=== PATIENT | male | born 1935 | race Caucasian/White ===

== ENCOUNTER 2017-04-16 18:52 | Inpatient (IN) | payer OTHER, BC ==
--- NOTE | 2017-04-16 20:12 | PDOC ---
History of Present Illness - General History Source: Patient, Family Exam Limitations: No Limitations - History of Present Illness Initial Comments: 04/16/17 21:15 The patient is an 82 year old male with a significant PMH of AFIB (not on blood thinners) & HTN who presents to the emergency department with dizziness and chest pain beginning at approximately 4PM today. The patient describes the chest pain as a pressure-like sensation localized in the left upper chest with no radiation, 5/10 in severity. He notes associated mild shortness of breath with his chest pain. The patient reports working in his basement and feeling dizzy while reaching into his toolbox. He notes grabbing onto furniture to prevent himself from falling and injuring his head. He reports associated mild nausea with the onset of his dizziness and reports developing his chest pain shortly after. The patient notes taking a regular dose Aspirin to some relief. The patient acknowledges dizziness upon sitting up at the ED. The patient states he only had Jello & soup to eat all day. The patient reports having similar episodes of dizziness in the past. He reports having a stress test conducted in August which was normal. The patient denies headache. Denies fever, chills, nausea, vomit, diarrhea and constipation. Denies dysuria, frequency, urgency and hematuria. Allergies: NKA Past surgical history: Hepaticojejunostomy. Right shoulder surgery. Social history: Occasional alcohol use. Former smoker. No reported drug use. PCP: Dr. Gama <Joe Pace - Last Filed: 04/16/17 22:53> <Noelle Taveras - Last Filed: 04/17/17 04:38> - General Chief Complaint: Chest Pain Stated Complaint: CHEST PAIN Time Seen by Provider: 04/16/17 19:34 NIH Stroke Scale - Last Known Well Date/Time & Onset Date Last Known Well: 04/16/17 Time Last Known Well: 16:00 - Initial Evaluation Level of consciousness: Alert Ask patient the month and their age: Answers both correctly Ask patient to open & close eyes; make fist and let go: Obeys both correctly Best gaze (horizontal eye movement): Normal Visual field testing: No visual field loss Facial paresis (Show teeth/raise eyebrows/close eyes tight): Normal symmetrical movement Motor Function: Left Arm: Normal Motor Function: Right Arm: Normal (extends arm 90 (or 45) degrees for 10 seconds without drift Motor Function: Left Leg: Normal (extends leg 30 degrees for 5 seconds without drift) Motor Function: Right Leg: Normal (extends leg 30 degrees for 5 seconds without drift) Limb Ataxia: No ataxia Sensory(Use pinprick test arms,legs,trunk,face/side to side): Normal Best language (Describe picture, name items, read sentences): No Aphasia Dysarthria (read several words): Normal articulation Extinction and Inattention: No abnormality - Total Score NIH Stroke Scale Score: 0 <Noelle Taveras - Last Filed: 04/17/17 04:38> Past History <Joe Pace - Last Filed: 04/16/17 22:53> - Past Medical History Anemia: No Asthma: No Cancer: No Cardiac Disorders: No CVA: No COPD: No CHF: No Dementia: No Diabetes: No GI Disorders: Yes (DIVERTICULOSIS) Disorders: Yes (BPH) HTN: Yes Hypercholesterolemia: No Liver Disease: Yes (PANCREATIC/HEPATIC CYST) Seizures: No Thyroid Disease: No - Surgical History Abdominal Surgery: No Appendectomy: Yes Cardiac Surgery: No Cholecystectomy: Yes (HEPATOJEJUNOSTOMY BYPASS FOR STONE BILE DUCT) Lung Surgery: No Neurologic Surgery: No Orthopedic Surgery: Yes (RIGHT SHOULDER SURGERY) - Suicide/Smoking/Psychosocial Hx Smoking History: Never smoked Have you smoked in the past 12 months: No If you are a former smoker, when did you quit?: 2007 Hx Alcohol Use: Yes (social) Drug/Substance Use Hx: No Hx Substance Use Treatment: No <Noelle Taveras - Last Filed: 04/17/17 04:38> - Past Medical History Allergies/Adverse Reactions: Allergies Allergy/AdvReac Type Severity Reaction Status Date / Time No Known Allergies Allergy Verified 05/25/14 15:42 Home Medications: Ambulatory Orders Amlodipine Bes/Olmesartan Med [Yariel 5-20 mg Tablet] 1 each PO DAILY 05/25/12 Terazosin HCl [Hytrin -] 2 mg PO DAILY 05/25/12 Review of Systems - Review of Systems Able to Perform ROS?: Yes Comments:: 04/16/17 21:15 GENERAL/CONSTITUTIONAL: No fever or chills. No weakness. HEAD, EYES, EARS, NOSE AND THROAT: No change in vision. No ear pain or discharge. No sore throat. CARDIOVASCULAR: (+) Chest pain. (+) Shortness of breath. RESPIRATORY: No cough, wheezing, or hemoptysis. GASTROINTESTINAL: (+) Nausea. No vomiting, diarrhea or constipation. GENITOURINARY: No dysuria, frequency, or change in urination. MUSCULOSKELETAL: No joint or muscle swelling or pain. No neck or back pain. SKIN: No rash NEUROLOGIC: (+) Dizziness. No headache, vertigo, loss of consciousness, or change in strength. ENDOCRINE: No increased thirst. No abnormal weight change. HEMATOLOGIC/LYMPHATIC: No anemia, easy bleeding, or history of blood clots. ALLERGIC/IMMUNOLOGIC: No hives or skin allergy. <Joe Pace - Last Filed: 04/16/17 22:53> *Physical Exam - Vital Signs Last Vital Signs Temp Pulse Resp BP Pulse Ox 98.4 F 65 19 157/89 98 04/16/17 19:00 04/16/17 19:00 04/16/17 19:00 04/16/17 19:00 04/16/17 19:00 - Physical Exam Comments: 04/16/17 21:17 GENERAL: Awake, alert, and fully oriented, in no acute distress HEAD: No signs of trauma EYES: PERRLA, EOMI, sclera anicteric, conjunctiva clear ENT: Auricles normal inspection, hearing grossly normal, nares patent, oropharynx clear without exudates. Moist mucosa NECK: Normal ROM, supple, no lymphadenopathy, JVD, or masses LUNGS: Breath sounds equal, clear to auscultation bilaterally. No wheezes, and no crackles HEART: Regular rate and rhythm, normal S1 and S2, no murmurs, rubs or gallops ABDOMEN: Soft, nontender, normoactive bowel sounds. No guarding, no rebound. No masses EXTREMITIES: Normal range of motion, no edema. No clubbing or cyanosis. No cords, erythema, or tenderness NEUROLOGICAL: Cranial nerves II through XII intact. 5/5 motor strength in all extremities. Normal speech. SKIN: Warm, Dry, normal turgor, no rashes or lesions noted. <Joe Pace - Last Filed: 04/16/17 22:53> - Vital Signs Last Vital Signs Temp Pulse Resp BP Pulse Ox 98.4 F 65 19 157/89 98 04/16/17 19:00 04/16/17 19:00 04/16/17 19:00 04/16/17 19:00 04/16/17 19:00 <Noelle Taveras - Last Filed: 04/17/17 04:38> ED Treatment Course - LABORATORY CBC & Chemistry Diagram: 04/16/17 20:21 04/16/17 20:21 - ADDITIONAL ORDERS Additional order review: Laboratory Results 04/16/17 20:21 Sodium 139 Potassium 3.8 Chloride 107 Carbon Dioxide 23 Anion Gap 9 BUN 14 D Creatinine 1.1 Creat Clearance w eGFR > 60 Random Glucose 153 H D Calcium 8.1 L Total Bilirubin 1.1 H D AST 35 D ALT 36 Alkaline Phosphatase 438 H D Creatine Kinase 38 L Troponin I 0.06 H Total Protein 6.3 L Albumin 2.8 L D 04/16/17 20:21 RBC 3.97 L MCV 97.0 H MCHC 33.6 RDW 12.8 MPV 9.0 Neutrophils % 88.0 H D Lymphocytes % 7.4 L D Monocytes % 4.3 Eosinophils % 0.1 D Basophils % 0.2 - Medications Given in the ED: ED Medications Discontinued Medications Generic Name Dose Route Start Last Admin Trade Name Freq PRN Reason Stop Dose Admin Meclizine HCl 50 mg 04/16/17 20:14 04/16/17 20:30 Antivert - PO 04/16/17 20:15 50 mg ONCE ONE Administration - Consult/PCP Case discussed with personal care physician: Munira Gama - Additional Consults Consult/PCP: Mitchell Sanders MD (Neurology) <Joe Pace - Last Filed: 04/16/17 22:53> - LABORATORY CBC & Chemistry Diagram: 04/16/17 20:21 04/16/17 20:21 <Noelle Taveras - Last Filed: 04/17/17 04:38> Medical Decision Making - Medical Decision Making 04/17/17 04:11 Pt comes with dizziness that began at 4PM. He was in his basement and felt like he was going to fall to the side. Pt had to hold on to the rhodes to stay up. He has no other complaints. He is nauseous. Pt has no Weakness and he has no altered MS. He has no fever or chills, no cough. Pt sees Dr. Gama. He has Afib x 2 years and refuses to take aniticoagulants, as he knows a few people who have had bad outcomes with blood thinners. 04/17/17 04:13 Pt's neuro exam is positive only for dizziness. No nystagmus. Off balance when walking. Pt's CT scan shows a cerebellar infarct on the left side. I discussed the case with neurology manager personal Dr. Sanders, who thinks pt should go to [facility] for interventional endovascular treatment. I got the okay from PMD Natan. I spoke to the stroke team at [facility], and they think that if PICA is involves/ vertebral arteries, there is no intervention; however if basilar system is involved then endovascular treatment is likely. We discussed the need for CTA brain. CTA brain reveals that pt has normal basilar arteries. Pt will stay in our hospital, as [facility] has no ICU beds for the patient. Pt will remain here; Dr. Sanders is aware and Dr. Gama is aware. 04/17/17 04:20 THIS IS A PRELIMINARY REPORT FROM IMAGING MECHANICAL INSPECTOR DATE OF SERVICE: 2017-04-16 20:38:12 IMAGES: 140 EXAM: CT head without contrast HISTORY: DISI COMPARISON: None. FINDINGS: 1. There is a large area of edema in the left cerebellum most consistent with the appearance of an acute infarct. There is no evidence of intracranial hemorrhage or significant mass effect. 2. Ventricular size is concordant with the degree of atrophy. 3. The visualized portions of the orbits, paranasal and mastoid sinuses are unremarkable. 4. No evidence of fracture. THIS DOCUMENT HAS BEEN ELECTRONICALLY SIGNED DATE OF SERVICE: 2017-04-16 22:30:27 IMAGES: [id number] EXAM: CT CTA HEAD HISTORY: Rule out vertebrobasilar occlusion COMPARISON: None. FINDINGS: There is a subacute left inferior cerebellar infarct. This is in the distribution of the left posterior inferior cerebellar artery. The left posterior inferior cerebellar artery is abruptly cut off after its first centimeter and is likely occluded. This corresponds to the territory of the infarct. The remainder of the anterior and posterior arterial circulations are patent without stenosis occlusion dissection or aneurysm. The basilar artery is patent. THIS DOCUMENT HAS BEEN ELECTRONICALLY SIGNED 04/17/17 04:34 Stroke team at [facility] warns that PICA infarcts can cause substantial swelling. Pt will require frequent neuro checks and may result in decreased mental status. In this event, neurosurgery should be called to see the patient. <Noelle Taveras - Last Filed: 04/17/17 04:38> *DC/Admit/Observation/Transfer - Attestations Scribe Attestion: 04/16/17 21:17 Documentation prepared by Joe Pace, acting as emergency medical technician for Noelle Taveras MD. <Joe Pace - Last Filed: 04/16/17 22:53> - Discharge Dispostion Admit: Yes <Noelle Taveras - Last Filed: 04/17/17 04:38> Diagnosis at time of Disposition: CVA (cerebral vascular accident) - Discharge Dispostion Condition at time of disposition: Guarded
[2017-04-16] MEDS ORDERED: MECLIZINE HCL 25 MG TABLET (FP) PO ONE (20:14)
[2017-04-16] MEDS ORDERED: MECLIZINE HCL 25 MG TABLET (FP) ONE (20:24)
[2017-04-16 20:29] LABS: BASOPHIL 0.2 % (0-2.0); EOSINOPHIL 0.1 % (0-4.5); MCH 32.6 pg (25.7-33.7); MCHC 33.6 g/dl (32.0-35.9); PLATELET COUNT 185 K/MM3 (134-434); RDW 12.8 % (11.9-15.9); WHITE BLOOD COUNT 7.7 K/mm3 (4.0-10.0)
[2017-04-16 21:05] LABS: ALBUMIN 2.8 g/dl (3.4-5.0); ANION GAP 9 (8-16); BILIRUBIN,TOTAL 1.1 mg/dL (0.2-1.0); CALCIUM 8.1 mg/dL (8.5-10.1); CO2 23 mmol/L (21-32); CREATININE 1.1 mg/dL (0.7-1.3); GLUCOSE,RANDOM 153 mg/dL (74-106); SGOT/AST 35 U/L (15-37); SGPT/ALT 36 U/L (12-78); TOT PROT 6.3 g/dl (6.4-8.2)
[2017-04-16 21:07] LABS: ALK PHOS 438 U/L (45-117); CPK 38 IU/L (39-308); TROPONIN I 0.06 ng/ml (0.00-0.05)
[2017-04-16] MEDS ORDERED: ASPIRIN 81 MG CHEWABLE TABLETS PO ONE (21:31)
[2017-04-16] MEDS ORDERED: ASPIRIN 325 MG TABLET ONE (22:52)
[2017-04-17 02:01] VITALS: BMI 25.5
[2017-04-17] MEDS: ACETAMINOPHEN 325 MG TABLET (FP) PO PRN (05:49)
[2017-04-17] MEDS ORDERED: RANITIDINE HCL 150 MG TABLET (FP) PO ONE (06:30)
[2017-04-17 09:21] LABS: CHOLESTEROL 105 mg/dL (50-200)
--- NOTE | 2017-04-17 11:36 | HP ---
Admitting History and Physical - Primary Care Physician PCP: Munira Gama - Admission Chief Complaint: DIZZINESS/WEAKNESS/CHEST PRESSURE/HEADACHE History of Present Illness: 82 Y/O MALE WITH HISTORY HTN, BPH,BILIARY STRICTURE, WITH A RECENT OF HIS IN PAST 1 MONTH. PATIENT WAS IN THE BASEMENT OF HIS HOUSE DEVELOPED HEADACHE WITH DIZZINESS, POSSIBLE ROOM SPINNING WITH IMMEDIATE NAUSEA AND VOMITING. EMS WAS CALLED BY FAMILY AND BROUGHT TO ED FOR WORKUP. SUBACUTE/ACUTE CVA POSSIBLE ON CT HEAD, WITH CAROTID ISCHEMIA ON CTA. MRI BRAIN PENDING, LAST MRI BRAIN IN DEC 2016 SHOWED CHRONIC CHANGES, NO ACUTE CVA. History Source: Patient, Family Member Limitations to Obtaining History: No Limitations - Past Medical History Cardiovascular: Yes: HTN Hepatobiliary: Yes: Other - Smoking History Smoking history: Never smoked Have you smoked in the past 12 months: No If you are a former smoker, when did you quit?: 2007 - Alcohol/Substance Use Hx Alcohol Use: Yes (social) Home Medications - Allergies Allergies/Adverse Reactions: Allergies Allergy/AdvReac Type Severity Reaction Status Date / Time No Known Allergies Allergy Verified 05/25/14 15:42 - Home Medications Home Medications: Ambulatory Orders Amlodipine Bes/Olmesartan Med [Yariel 5-20 mg Tablet] 1 each PO DAILY 05/25/12 Terazosin HCl [Hytrin -] 2 mg PO DAILY 05/25/12 Review of Systems - Review of Systems Constitutional: reports: Weakness Eyes: reports: No Symptoms Neck: reports: No Symptoms Cardiovascular: reports: Chest Pain Respiratory: reports: SOB Gastrointestinal: reports: Nausea, Vomiting Genitourinary: reports: No Symptoms Musculoskeletal: reports: Back Pain Integumentary: reports: No Symptoms Neurological: reports: Dizziness, Unsteady Gait, Weakness Endocrine: reports: No Symptoms Hematology/Lymphatic: reports: No Symptoms Psychiatric: reports: No Symptoms Physical Examination Vital Signs: Vital Signs Temperature 98.2 F 04/17/17 09:00 Pulse Rate 44 L 04/17/17 09:00 Respiratory Rate 18 04/17/17 09:00 Blood Pressure 138/68 04/17/17 09:00 O2 Sat by Pulse Oximetry (%) 97 04/17/17 01:00 Findings/Remarks: [facility]AEK ALERT IN [facility], TRANSFERRING TO MRI BRAIN Constitutional: Yes: Mild Distress HENT: Yes: WNL Neck: Yes: WNL Cardiovascular: Yes: Bradycardia Respiratory: Yes: WNL Gastrointestinal: Yes: WNL Renal/: Yes: WNL Musculoskeletal: Yes: WNL Extremities: Yes: WNL Edema: No Peripheral Pulses WNL: Yes Integumentary: Yes: WNL Wound/Incision: Yes: Clean/Dry Neurological: Yes: Unsteady Gait ...Motor Strength: LLE, RLE Psychiatric: Yes: WNL Labs: CBC, BMP 04/16/17 20:21 04/16/17 20:21 Imaging - Results Cat Scan: Report Reviewed Problem List - Problems (1) Hypertension Code(s): I10 - ESSENTIAL (PRIMARY) HYPERTENSION Qualifiers: Hypertension type: essential hypertension Qualified Code(s): I10 - Essential (primary) hypertension (2) Vertigo Code(s): R42 - DIZZINESS AND GIDDINESS (3) Bradycardia Code(s): R00.1 - BRADYCARDIA, UNSPECIFIED (4) Nausea & vomiting Code(s): R11.2 - NAUSEA WITH VOMITING, UNSPECIFIED Qualifiers: Vomiting type: unspecified (5) Chest pain Code(s): R07.9 - CHEST PAIN, UNSPECIFIED Qualifiers: Chest pain type: chest pain on breathing Qualified Code(s): R07.1 - Chest pain on breathing; R07.81 - Pleurodynia (6) CVA (cerebral vascular accident) Code(s): I63.9 - CEREBRAL INFARCTION, UNSPECIFIED Qualifiers: CVA mechanism: unspecified Qualified Code(s): I63.9 - Cerebral infarction, unspecified Assessment/Plan MRI BRAIN PENDING NEUROLOGY AND VASC SURGERY EVAL FOR CAROTID ISCHEMIA AND POSSIBLE CVA BRADYCARDIA WITH CHEST PAIN CARDIOLOGY CONSULT TELEMETRY FOR ARRYTHMIA EVAL PT EVAL OOB TO CHAIR WITH ASSIST STATINS ARE NOT NEEDED LDL = 42
[2017-04-17] MEDS: VALSARTAN 160 MG TABLET (UD) PO SCH (12:03)
[2017-04-17] MEDS: amLODIPine BESYLATE 5 MG TABLET (FP) PO SCH (12:03)
--- NOTE | 2017-04-17 14:54 | PN ---
Progress Note (short form) - Note Progress Note: Vascular Surgery CTA head reviewed. 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 Ordered carotid doppler to check anterior circulation. Will follow Ab Delgado DO
--- NOTE | 2017-04-17 14:55 | PN ---
Progress Note (short form) - Note Progress Note: Vascular Surgery Carotid doppler done today. normal bilateral carotid arteries. No need for any surgery Medical management. Ab batres DO
--- NOTE | 2017-04-17 15:17 | CONSULT ---
Consult - text type - Consultation Consultation Note: Neurology History of Present Illness The patient is an 82 year old male with a significant PMH of AFIB (not on blood thinners) & HTN who presented to the emergency department with dizziness and chest pain on 04/16/18. The patient described the chest pain as a pressure-like sensation localized in the left upper chest with no radiation, 5/10 in severity. He noted associated mild shortness of breath with his chest pain. The patient reported working in his basement and feeling dizzy while reaching into his toolbox. He noted grabbing onto furniture to prevent himself from falling and injuring his head. He presented to ER and I was contacted spoke with ER physician. 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 Patient was not in TPA window but endovascular treatment was considered. Nolberto was contacted by the ER and recommendation for CTA was given. This was completed and reviewed and showed Posterior Inferior Cerebellar arterial occlusion, no blockage of basilar and therefore patient was not pursued for further endovascular treatment. Patient admitted for further CVA workup and MRI brain completed and reviewed and showed consistent L cerebellar acute to subacute infarct. The patient takes a daily ASA and therefore considered ASA failure, ordered Aggrenox twice daily. Carotd dopplers completed and showed no anterior circulation hemodynamically significant stenosis. Vascular surgery on the case and notes reviewed, no surgical intervention at this time. Past History - Past Medical History Anemia: No Asthma: No Cancer: No Cardiac Disorders: No CVA: No COPD: No CHF: No Dementia: No Diabetes: No GI Disorders: Yes (DIVERTICULOSIS) Disorders: Yes (BPH) HTN: Yes Hypercholesterolemia: No Liver Disease: Yes (PANCREATIC/HEPATIC CYST) Seizures: No Thyroid Disease: No - Surgical History Abdominal Surgery: No Appendectomy: Yes Cardiac Surgery: No Cholecystectomy: Yes (HEPATOJEJUNOSTOMY BYPASS FOR STONE BILE DUCT) Lung Surgery: No Neurologic Surgery: No Orthopedic Surgery: Yes (RIGHT SHOULDER SURGERY) - Suicide/Smoking/Psychosocial Hx Smoking History: Never smoked Have you smoked in the past 12 months: No If you are a former smoker, when did you quit?: 2007 Hx Alcohol Use: Yes (social) Drug/Substance Use Hx: No Hx Substance Use Treatment: No - Past Medical History Allergies/Adverse Reactions: Allergies Allergy/AdvReac Type Severity Reaction Status Date / Time No Known Allergies Allergy Verified 05/25/14 15:42 Home Medication List Medication Instructions Recorded Confirmed Type Amlodipine Bes/Olmesartan Med 1 each PO DAILY 05/25/12 04/16/17 History [Yariel 5-20 mg Tablet] Terazosin HCl [Hytrin -] 2 mg PO DAILY 05/25/12 04/16/17 History Active Medications Generic Name Dose Route Start Last Admin Trade Name Freq PRN Reason Stop Dose Admin Acetaminophen 650 mg 04/17/17 05:11 04/17/17 05:49 Tylenol - PO 650 mg Q6H PRN Administration FEVER OR PAIN Amlodipine Besylate 5 mg 04/17/17 10:00 04/17/17 12:03 Norvasc - PO 5 mg DAILY JUANIS Administration Dipyridamole/Aspirin 1 combo 04/17/17 15:15 Aggrenox - PO BID JUANIS Terazosin HCl 2 mg 04/17/17 22:00 Hytrin - PO HS JUANIS Valsartan 160 mg 04/17/17 10:00 04/17/17 12:03 Diovan - PO 160 mg DAILY JUANIS Administration Review of Systems GENERAL/CONSTITUTIONAL: No fever or chills. No weakness. HEAD, EYES, EARS, NOSE AND THROAT: No change in vision. No ear pain or discharge. No sore throat. CARDIOVASCULAR: (+) Chest pain. (+) Shortness of breath. RESPIRATORY: No cough, wheezing, or hemoptysis. GASTROINTESTINAL: (+) Nausea. No vomiting, diarrhea or constipation. GENITOURINARY: No dysuria, frequency, or change in urination. MUSCULOSKELETAL: No joint or muscle swelling or pain. No neck or back pain. SKIN: No rash NEUROLOGIC: (+) Dizziness. No headache, vertigo, loss of consciousness, or change in strength. ENDOCRINE: No increased thirst. No abnormal weight change. HEMATOLOGIC/LYMPHATIC: No anemia, easy bleeding, or history of blood clots. ALLERGIC/IMMUNOLOGIC: No hives or skin allergy. *Physical Exam Vital Signs Temperature 98.5 F 04/17/17 14:00 Pulse Rate 44 L 04/17/17 14:00 Respiratory Rate 20 04/17/17 14:00 Blood Pressure 146/75 04/17/17 14:00 O2 Sat by Pulse Oximetry (%) 97 04/17/17 01:00 GENERAL: Awake, alert, and fully oriented, in no acute distress HEAD: No signs of trauma EYES: PERRLA, EOMI, sclera anicteric, conjunctiva clear ENT: Auricles normal inspection, hearing grossly normal, nares patent, oropharynx clear without exudates. Moist mucosa NECK: Normal ROM, supple, no lymphadenopathy, JVD, or masses LUNGS: Breath sounds equal, clear to auscultation bilaterally. No wheezes, and no crackles HEART: Regular rate and rhythm, normal S1 and S2, no murmurs, rubs or gallops ABDOMEN: Soft, nontender, normoactive bowel sounds. No guarding, no rebound. No masses EXTREMITIES: Normal range of motion, no edema. No clubbing or cyanosis. No cords, erythema, or tenderness NEUROLOGICAL: Cranial nerves II through XII intact. 5/5 motor strength in all extremities. Normal speech. Dysmetria noted. SKIN: Warm, Dry, normal turgor, no rashes or lesions noted. Laboratory Results 04/16/17 20:21 Sodium 139 Potassium 3.8 Chloride 107 Carbon Dioxide 23 Anion Gap 9 BUN 14 D Creatinine 1.1 Creat Clearance w eGFR > 60 Random Glucose 153 H D Calcium 8.1 L Total Bilirubin 1.1 H D AST 35 D ALT 36 Alkaline Phosphatase 438 H D Creatine Kinase 38 L Troponin I 0.06 H Total Protein 6.3 L Albumin 2.8 L D 04/16/17 20:21 RBC 3.97 L MCV 97.0 H MCHC 33.6 RDW 12.8 MPV 9.0 Neutrophils % 88.0 H D Lymphocytes % 7.4 L D Monocytes % 4.3 Eosinophils % 0.1 D Basophils % 0.2 CT head CTA head MRI brain Carotid dopplers reviewed Medical Decision Making 82 year old male with a significant PMH of AFIB (not on blood thinners) & HTN who presented to the emergency department with dizziness and chest pain on 04/16. 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 Patient was not in TPA window but endovascular treatment was considered. Nolberto was contacted by the ER and recommendation for CTA was given. This was completed and reviewed and showed Posterior Inferior Cerebellar arterial occlusion, no blockage of basilar and therefore patient was not pursued for further endovascular treatment. Patient admitted for further CVA workup and MRI brain completed and reviewed and showed consistent L cerebellar acute to subacute infarct. The patient takes a daily ASA and therefore considered ASA failure, ordered Aggrenox twice daily. Carotd dopplers completed and showed no anterior circulation hemodynamically significant stenosis. Vascular surgery on the case and notes reviewed, no surgical intervention at this time. Unclear etiology, can be embolic and rec'd checking Echo Cerebellar CVA often times HTN, therefore tight BP control rec'd, maintain < 140 /90 Can continue Diovan, Norvasc Cerebellar CVA edema can build over 5 days and critical to monitor days 3-5 for increased intracranial pressure Physical therapy as tolerated, will need rehab LDL 42, within normal limits DVT ppx Will follow
[2017-04-17] MEDS: ASPIRIN/DIPYRIDAMOLE 25 MG/200 MG CAPSULE (FP) PO SCH ×2 (15:27→23:38)
--- NOTE | 2017-04-17 16:12 | CON.CARD ---
Consult Consult Specialty:: Cardiology - History of Present Illness Chief Complaint: chest pain and dizziness History of Present Illness: 82 M with HTN who has a prior history of Afib (seen by Dr. Boudreaux and pt has repeatedly declined AC). He developed severe dizziness and nausea and had several dry heaves after which he had left sided chest pressure-point tenderness without radiation. Pain was reproducible and has now resolved. MRI showing an acute infarct. There is no prior history of CAD or heart failure. A stress test few years ago was reportedly negative per pt. - History Source History Provided By: Patient Limitations to Obtaining History: No Limitations - Past Medical History Cardio/Vascular: Yes: AFIB, HTN Hepatobiliary: Yes: Other - Alcohol/Substance Use Hx Alcohol Use: Yes (social) - Smoking History Smoking history: Never smoked Have you smoked in the past 12 months: No If you are a former smoker, when did you quit?: 2007 Home Medications - Allergies Allergies/Adverse Reactions: Allergies Allergy/AdvReac Type Severity Reaction Status Date / Time No Known Allergies Allergy Verified 05/25/14 15:42 - Home Medications Home Medications: Ambulatory Orders Amlodipine Bes/Olmesartan Med [Yariel 5-20 mg Tablet] 1 each PO DAILY 05/25/12 Terazosin HCl [Hytrin -] 2 mg PO DAILY 05/25/12 Review of Systems - Review of Systems Constitutional: reports: Weakness Eyes: reports: No Symptoms HENT: reports: No Symptoms Neck: reports: No Symptoms Cardiovascular: reports: No Symptoms Respiratory: reports: No Symptoms Gastrointestinal: reports: No Symptoms Genitourinary: reports: No Symptoms Neurological: reports: Dizziness Vital Signs: Vital Signs Temperature 98.5 F 04/17/17 14:00 Pulse Rate 44 L 04/17/17 14:00 Respiratory Rate 20 04/17/17 14:00 Blood Pressure 146/75 04/17/17 14:00 O2 Sat by Pulse Oximetry (%) 97 04/17/17 01:00 Constitutional: Yes: Well Nourished, No Distress Eyes: Yes: Conjunctiva Clear, Ptosis HENT: Yes: Atraumatic, Normocephalic Neck: Yes: Supple, Trachea Midline Respiratory: Yes: Regular, CTA Bilaterally Gastrointestinal: Yes: Normal Bowel Sounds, Soft Cardiovascular: Yes: Bradycardia JVD: No Carotid Bruit: No Heart Sounds: Yes: S1, S2 Musculoskeletal: Yes: WNL Extremities: Yes: WNL Edema: No Neurological: Yes: Alert, Oriented - Other Data Labs, Other Data: CBC, BMP 04/16/17 20:21 04/16/17 20:21 Troponin, BNP 04/16/17 20:21 Troponin I 0.06 H Troponin, BNP 04/16/17 20:21 Troponin I 0.06 H Sinus bradycardia Nl [place] and interval Imaging - Results MRI: Report Reviewed EKG: Image Reviewed Problem List - Problems (1) Bradycardia Code(s): R00.1 - BRADYCARDIA, UNSPECIFIED (2) CVA (cerebral vascular accident) Code(s): I63.9 - CEREBRAL INFARCTION, UNSPECIFIED Qualifiers: CVA mechanism: unspecified Qualified Code(s): I63.9 - Cerebral infarction, unspecified Assessment/Plan 82 M with HTN and a history of Afib not treated with AC is now admitted with sdizziness and chest pain. 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 CHest pain-symptoms are atypical for angina and have now resolved. 1. Repeat Troponin levels 2. Echocardiogram 3. He has significant sinus bradycardia without pauses. COntinue on telemetry and avoid any AV dodie blockers. Check TFT. 4. Would place on Anticoagulation when cleared by neurology.
[2017-04-17] MEDS ORDERED: PT OWN MED DRAWER 7, Y5N ONE (21:15)
[2017-04-17] MEDS ORDERED: ASPIRIN/DIPYRIDAMOLE 25 MG/200 MG CAPSULE (FP) PO SCH (22:00)
[2017-04-17] MEDS ORDERED: TERAZOSIN HCL 2 MG CAPSULE PO SCH (22:00)
[2017-04-18] MEDS: ACETAMINOPHEN 325 MG TABLET (FP) PO PRN ×4 (00:48→21:40)
[2017-04-18 07:38] LABS: ALBUMIN 2.6 g/dl (3.4-5.0); ALK PHOS 380 U/L (45-117); ANION GAP 6 (8-16); CALCIUM 8.6 mg/dL (8.5-10.1); CO2 26 mmol/L (21-32); CREATININE 1.2 mg/dL (0.7-1.3); GLUCOSE,RANDOM 84 mg/dL (74-106); SGOT/AST 37 U/L (15-37); SGPT/ALT 34 U/L (12-78); TOT PROT 5.8 g/dl (6.4-8.2)
[2017-04-18 07:40] LABS: MCH 32.3 pg (25.7-33.7); MEAN CELL VOLUME 97.9 fl (80-96); MEAN PLT VOLUME 9.7 fl (7.5-11.1); PLATELET COUNT 179 K/MM3 (134-434); RDW 13.2 % (11.9-15.9); WHITE BLOOD COUNT 8.3 K/mm3 (4.0-10.0)
[2017-04-18 08:40] LABS: CPK 40 IU/L (39-308); TROPONIN I 0.06 ng/ml (0.00-0.05)
[2017-04-18] MEDS: VALSARTAN 160 MG TABLET (UD) PO SCH (09:00)
[2017-04-18] MEDS: amLODIPine BESYLATE 5 MG TABLET (FP) PO SCH (09:00)
[2017-04-18] MEDS: ASPIRIN/DIPYRIDAMOLE 25 MG/200 MG CAPSULE (FP) PO SCH ×2 (09:00→21:39)
--- NOTE | 2017-04-18 09:34 | PN ---
Progress Note (short form) - Note Progress Note: [facility] *LIVE* Neurology History of Present Illness The patient is an 82 year old male with a significant PMH of AFIB (not on blood thinners) & HTN who presented to the emergency department with dizziness and chest pain on 04/16/18. The patient described the chest pain as a pressure-like sensation localized in the left upper chest with no radiation, 5/10 in severity. He noted associated mild shortness of breath with his chest pain. The patient reported working in his basement and feeling dizzy while reaching into his toolbox. He noted grabbing onto furniture to prevent himself from falling and injuring his head. He presented to ER and I was contacted spoke with ER physician. 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 Patient was not in TPA window but endovascular treatment was considered. Nolberto was contacted by the ER and recommendation for CTA was given. This was completed and reviewed and showed Posterior Inferior Cerebellar arterial occlusion, no blockage of basilar and therefore patient was not pursued for further endovascular treatment. Patient admitted for further CVA workup and MRI brain completed and reviewed and showed consistent L cerebellar acute to subacute infarct. The patient takes a daily ASA and therefore considered ASA failure, ordered Aggrenox twice daily. Carotd dopplers completed and showed no anterior circulation hemodynamically significant stenosis. Vascular surgery on the case and notes reviewed, no surgical intervention at this time. Patient reports continued unsteadiness and discussed physical therapy for help with gait and ambulation. Likely will need assistive device, may benefit from rehab. Active Medications Acetaminophen (Tylenol -) 650 mg PO Q6H PRN PRN Reason: FEVER OR PAIN Last Admin: 04/18/17 08:26 Dose: 650 mg Amlodipine Besylate (Norvasc -) 5 mg PO DAILY [facility] Last Admin: 04/17/17 12:03 Dose: 5 mg Dipyridamole/Aspirin (Aggrenox -) 1 combo PO BID [facility] Last Admin: 04/17/17 23:38 Dose: 1 combo Terazosin HCl (Hytrin -) 2 mg PO HS [facility] Valsartan (Diovan -) 160 mg PO DAILY [facility] Last Admin: 04/17/17 12:03 Dose: 160 mg *Physical Exam Vital Signs Temperature 98.3 F 04/18/17 05:26 Pulse Rate 41 L 04/18/17 05:26 Respiratory Rate 18 04/18/17 05:26 Blood Pressure 112/54 04/18/17 05:26 O2 Sat by Pulse Oximetry (%) 97 04/17/17 22:00 GENERAL: Awake, alert, and fully oriented, in no acute distress HEAD: No signs of trauma EYES: PERRLA, EOMI, sclera anicteric, conjunctiva clear ENT: Auricles normal inspection, hearing grossly normal, nares patent, oropharynx clear without exudates. Moist mucosa NECK: Normal ROM, supple, no lymphadenopathy, JVD, or masses LUNGS: Breath sounds equal, clear to auscultation bilaterally. No wheezes, and no crackles HEART: Regular rate and rhythm, normal S1 and S2, no murmurs, rubs or gallops ABDOMEN: Soft, nontender, normoactive bowel sounds. No guarding, no rebound. No masses EXTREMITIES: Normal range of motion, no edema. No clubbing or cyanosis. No cords, erythema, or tenderness NEUROLOGICAL: Cranial nerves II through XII intact. 5/5 motor strength in all extremities. Normal speech. Dysmetria noted, antaligic gait SKIN: Warm, Dry, normal turgor, no rashes or lesions noted. CBCD WBC 8.3 K/mm3 (4.0-10.0) 04/18/17 05:10 RBC 3.79 M/mm3 (4.00-5.60) L 04/18/17 05:10 Hgb 12.2 GM/dL (11.7-16.9) 04/18/17 05:10 Hct 37.1 % (35.4-49) 04/18/17 05:10 MCV 97.9 fl (80-96) H 04/18/17 05:10 MCHC 33.0 g/dl (32.0-35.9) 04/18/17 05:10 RDW 13.2 % (11.9-15.9) 04/18/17 05:10 Plt Count 179 K/MM3 (134-434) 04/18/17 05:10 MPV 9.7 fl (7.5-11.1) 04/18/17 05:10 CMP Sodium 139 mmol/L (136-145) 04/18/17 05:10 Potassium 4.1 mmol/L (3.5-5.1) 04/18/17 05:10 Chloride 107 mmol/L (98-107) 04/18/17 05:10 Carbon Dioxide 26 mmol/L (21-32) 04/18/17 05:10 Anion Gap 6 (8-16) L 04/18/17 05:10 BUN 21 mg/dL (7-18) H D 04/18/17 05:10 Creatinine 1.2 mg/dL (0.7-1.3) 04/18/17 05:10 Creat Clearance w eGFR 58.11 (>60) 04/18/17 05:10 Calcium 8.6 mg/dL (8.5-10.1) 04/18/17 05:10 Total Bilirubin 1.0 mg/dL (0.2-1.0) 04/18/17 05:10 AST 37 U/L (15-37) 04/18/17 05:10 ALT 34 U/L (12-78) 04/18/17 05:10 Alkaline Phosphatase 380 U/L (45-117) H 04/18/17 05:10 Total Protein 5.8 g/dl (6.4-8.2) L 04/18/17 05:10 Albumin 2.6 g/dl (3.4-5.0) L 04/18/17 05:10 CT head CTA head MRI brain Carotid dopplers reviewed Medical Decision Making 82 year old male with a significant PMH of AFIB (not on blood thinners) & HTN who presented to the emergency department with dizziness and chest pain on 04/16. 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 Patient was not in TPA window but endovascular treatment was considered. Nolberto was contacted by the ER and recommendation for CTA was given. This was completed and reviewed and showed Posterior Inferior Cerebellar arterial occlusion, no blockage of basilar and therefore patient was not pursued for further endovascular treatment. Patient admitted for further CVA workup and MRI brain completed and reviewed and showed consistent L cerebellar acute to subacute infarct. The patient takes a daily ASA and therefore considered ASA failure, ordered Aggrenox twice daily. Carotd dopplers completed and showed no anterior circulation hemodynamically significant stenosis. Vascular surgery on the case and notes reviewed, no surgical intervention at this time. Unclear etiology, can be embolic and rec'd checking Echo Cerebellar CVA often times HTN, therefore tight BP control rec'd, maintain < 140 /90 Can continue Eyad Perdomo Cerebellar CVA edema can build over 5 days and critical to monitor days 3-5 for increased intracranial pressure Physical therapy as tolerated, will need rehab LDL 42, within normal limits DVT ppx Physical therapy consider assistive device may benefit from rehab
--- NOTE | 2017-04-18 09:54 | EKG ---
Test Reason : Blood Pressure : / mmHG Vent. Rate : 066 BPM Atrial Rate : 066 BPM P-R Int : 158 ms QRS Dur : 092 ms QT Int : 440 ms P-R-T Axes : 080 038 -30 degrees QTc Int : 461 ms SINUS RHYTHM WITH BLOCKED PREMATURE ATRIAL COMPLEXES NONSPECIFIC ST AND T WAVE ABNORMALITY PROLONGED QT ABNORMAL ECG WHEN COMPARED WITH ECG OF 22-OCT-2003 09:03, PREMATURE ATRIAL COMPLEXES ARE NOW PRESENT NONSPECIFIC T WAVE ABNORMALITY NOW EVIDENT IN LATERAL LEADS Confirmed by ALEN JAFFE, ALAN ([id number]) on 04/18/2017 9:54:11 AM Referred By: Confirmed By:ALAN LOWRY MD
--- NOTE | 2017-04-18 11:44 | EKG ---
Test Reason : Blood Pressure : / mmHG Vent. Rate : 042 BPM Atrial Rate : 042 BPM P-R Int : 110 ms QRS Dur : 098 ms QT Int : 518 ms P-R-T Axes : 102 012 -44 degrees QTc Int : 432 ms MARKED SINUS BRADYCARDIA WITH SHORT [place] ABNORMAL ECG WHEN COMPARED WITH ECG OF 16-APR-2017 19:35, PREMATURE ATRIAL COMPLEXES ARE NO LONGER PRESENT [place] INTERVAL HAS DECREASED VENT. RATE HAS DECREASED BY 24 BPM Confirmed by ALAN LOWRY MD ([id number]) on 04/18/2017 11:44:03 AM Referred By: David CHRISTINA Confirmed By:ALAN LOWRY MD
--- NOTE | 2017-04-18 15:19 | PN ---
Progress Note, Physician Chief Complaint: AWAKE ALERT C/O HEADAche AND ACID REFLUX. - Current Medication List Current Medications: Active Medications Acetaminophen (Tylenol -) 650 mg PO Q6H PRN PRN Reason: FEVER OR PAIN Last Admin: 04/18/17 08:26 Dose: 650 mg Amlodipine Besylate (Norvasc -) 5 mg PO DAILY [facility] Last Admin: 04/18/17 09:00 Dose: 5 mg Dipyridamole/Aspirin (Aggrenox -) 1 combo PO BID [facility] Last Admin: 04/18/17 09:00 Dose: 1 combo Terazosin HCl (Hytrin -) 2 mg PO HS [facility] Valsartan (Diovan -) 160 mg PO DAILY [facility] Last Admin: 04/18/17 09:00 Dose: 160 mg - Objective Vital Signs: Vital Signs Temperature 98.3 F 04/18/17 10:00 Pulse Rate 51 L 04/18/17 10:00 Respiratory Rate 18 04/18/17 10:00 Blood Pressure 143/62 04/18/17 10:00 O2 Sat by Pulse Oximetry (%) 97 04/18/17 09:00 Constitutional: Yes: Mild Distress Eyes: Yes: WNL HENT: Yes: WNL Neck: Yes: WNL Cardiovascular: Yes: Pulse Irregular Respiratory: Yes: WNL Gastrointestinal: Yes: WNL Genitourinary: Yes: WNL Musculoskeletal: Yes: WNL Extremities: Yes: WNL Edema: No Peripheral Pulses WNL: Yes Integumentary: Yes: WNL Wound/Incision: Yes: Clean/Dry Neurological: Yes: WNL ...Motor Strength: WNL Psychiatric: Yes: WNL Labs: CBC, BMP 04/18/17 05:10 04/18/17 05:10 Problem List - Problems (1) Hypertension Code(s): I10 - ESSENTIAL (PRIMARY) HYPERTENSION Qualifiers: Hypertension type: essential hypertension Qualified Code(s): I10 - Essential (primary) hypertension (2) Vertigo Code(s): R42 - DIZZINESS AND GIDDINESS (3) Bradycardia Code(s): R00.1 - BRADYCARDIA, UNSPECIFIED (4) Nausea & vomiting Code(s): R11.2 - NAUSEA WITH VOMITING, UNSPECIFIED Qualifiers: Vomiting type: unspecified (5) Chest pain Code(s): R07.9 - CHEST PAIN, UNSPECIFIED Qualifiers: Chest pain type: chest pain on breathing Qualified Code(s): R07.1 - Chest pain on breathing; R07.81 - Pleurodynia (6) CVA (cerebral vascular accident) Code(s): I63.9 - CEREBRAL INFARCTION, UNSPECIFIED Qualifiers: CVA mechanism: unspecified Qualified Code(s): I63.9 - Cerebral infarction, unspecified Assessment/Plan MRI BRAIN REVIEWED CEREBELLAR BLEED NEUROLOGY EVAL AGGRENOX STARTED SNF ACUTE CVA AFIB ON TELEMETRY ZANTAC BID OOB TO CHAIR WITH ASSIST
[2017-04-18] MEDS ORDERED: MAG HYDROX/AL HYDROX/SIMETH 355 ML ORAL.SUSP PO PRN (15:20)
--- NOTE | 2017-04-18 15:34 | PN ---
Progress Note, Physician Chief Complaint: Patient feels better today Tele: sinus 40s-60 with paroxysmal afib 60s-80s No significant pauses History of Present Illness: 82 M with HTN who has a prior history of Afib (seen by Dr. Boudreaux and pt has repeatedly declined AC). He developed severe dizziness and nausea and had several dry heaves after which he had left sided chest pressure-point tenderness without radiation. Pain was reproducible and has now resolved. MRI showing an acute infarct. There is no prior history of CAD or heart failure. A stress test few years ago was reportedly negative per pt. - Current Medication List Current Medications: Active Medications Acetaminophen (Tylenol -) 650 mg PO Q6H PRN PRN Reason: FEVER OR PAIN Last Admin: 04/18/17 08:26 Dose: 650 mg Al Hydroxide/Mg Hydroxide (Mylanta Suspension -) 30 ml PO Q6HPO PRN PRN Reason: INDIGESTION Amlodipine Besylate (Norvasc -) 5 mg PO DAILY [facility] Last Admin: 04/18/17 09:00 Dose: 5 mg Dipyridamole/Aspirin (Aggrenox -) 1 combo PO BID [facility] Last Admin: 04/18/17 09:00 Dose: 1 combo Ranitidine HCl (Zantac -) 150 mg PO BID [facility] Terazosin HCl (Hytrin -) 2 mg PO HS [facility] Valsartan (Diovan -) 160 mg PO DAILY [facility] Last Admin: 04/18/17 09:00 Dose: 160 mg - Objective Vital Signs: Vital Signs Temperature 98.3 F 04/18/17 10:00 Pulse Rate 51 L 04/18/17 10:00 Respiratory Rate 18 04/18/17 10:00 Blood Pressure 143/62 04/18/17 10:00 O2 Sat by Pulse Oximetry (%) 97 04/18/17 09:00 Constitutional: Yes: No Distress Neck: Yes: Supple, Trachea Midline Cardiovascular: Yes: Pulse Irregular, S1, S2 Respiratory: Yes: CTA Bilaterally Gastrointestinal: Yes: Normal Bowel Sounds, Soft Extremities: Yes: WNL Edema: No Labs: CBC, BMP 04/18/17 05:10 04/18/17 05:10 Problem List - Problems (1) Hypertension Code(s): I10 - ESSENTIAL (PRIMARY) HYPERTENSION Qualifiers: Hypertension type: essential hypertension Qualified Code(s): I10 - Essential (primary) hypertension Assessment/Plan 82 M with HTN who has a prior history of Afib (seen by Dr. Boudreaux and pt has repeatedly declined AC). He developed severe dizziness and nausea and had several dry heaves after which he had left sided chest pressure-point tenderness without radiation. Pain was reproducible and has now resolved. MRI showing an acute infarct. There is no prior history of CAD or heart failure. A stress test few years ago was reportedly negative per pt. 1) CVA -HTN control. Would continue current regimen -F/u neuro recs Echocardiogram with no embolic source Known Afib. halfway should be on AC. Would consider apixaban 5mg po bid. Would discuss with neuro regarding timing after acute CVA. 2) HTN continue current regimen 3) Afib Known h/o afib Paroxysmal afib on tele. Would monitor for any tachy/pina If has symptoms of dizziness in future consider monitor to re-evaluate for tachy /pina
[2017-04-18] MEDS: RANITIDINE HCL 150 MG TABLET (FP) PO SCH ×2 (15:45→21:39)
[2017-04-18] MEDS ORDERED: PT OWN MED DRAWER 7, Y5N ONE (21:34)
[2017-04-18] MEDS: TERAZOSIN HCL 1 MG CAPSULE PO SCH (21:40)
[2017-04-19] MEDS: ACETAMINOPHEN 325 MG TABLET (FP) PO PRN ×3 (03:36→17:03)
[2017-04-19] MEDS: ACETAMINOPHEN/CAFFEINE/BUTALBITAL 1 TAB PO PRN ×3 (08:52→20:29)
[2017-04-19] MEDS: ASPIRIN/DIPYRIDAMOLE 25 MG/200 MG CAPSULE (FP) PO SCH (09:14)
[2017-04-19] MEDS: RANITIDINE HCL 150 MG TABLET (FP) PO SCH ×2 (09:14→21:07)
[2017-04-19] MEDS: amLODIPine BESYLATE 5 MG TABLET (FP) PO SCH (09:14)
[2017-04-19] MEDS: VALSARTAN 160 MG TABLET (UD) PO SCH (09:14)
--- NOTE | 2017-04-19 09:55 | PN ---
Progress Note (short form) - Note Progress Note: Neurology History of Present Illness The patient is an 82 year old male with a significant PMH of AFIB (not on blood thinners) & HTN who presented to the emergency department with dizziness and chest pain on 04/16/18. The patient described the chest pain as a pressure-like sensation localized in the left upper chest with no radiation, 5/10 in severity. He noted associated mild shortness of breath with his chest pain. The patient reported working in his basement and feeling dizzy while reaching into his toolbox. He noted grabbing onto furniture to prevent himself from falling and injuring his head. He presented to ER and I was contacted spoke with ER physician. 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 Patient was not in TPA window but endovascular treatment was considered. Nolberto was contacted by the ER and recommendation for CTA was given. This was completed and reviewed and showed Posterior Inferior Cerebellar arterial occlusion, no blockage of basilar and therefore patient was not pursued for further endovascular treatment. Patient admitted for further CVA workup and MRI brain completed and reviewed and showed consistent L cerebellar acute to subacute infarct. The patient takes a daily ASA and therefore considered ASA failure, ordered Aggrenox twice daily. Carotd dopplers completed and showed no anterior circulation hemodynamically significant stenosis. Vascular surgery on the case and notes reviewed, no surgical intervention at this time. Patient reports continued unsteadiness and discussed physical therapy for help with gait and ambulation. Likely will need assistive device, may benefit from rehab. Continued headache this morning, started on Fioricet this AM and was helpful. Discussed avoidance of sedation, continue monitoring mental status. Spoke to tape fastener machine operator yesterday regarding anticoagulation as mentioned in addendum yesterday. Still risk of bleed but with patient in Afib that's new onset, and high risk for recurrence of CVA, benefit of prevention outweigh risk. Discussed with patient as well as nurse. Active Medications Acetaminophen (Tylenol -) 650 mg PO Q6H PRN PRN Reason: FEVER OR PAIN Last Admin: 04/19/17 03:36 Dose: 650 mg Acetaminophen/Butalbital/Caffeine (Fioricet -) 1 tablet PO Q6H PRN PRN Reason: HEADACHE Last Admin: 04/19/17 08:52 Dose: 1 tablet Al Hydroxide/Mg Hydroxide (Mylanta Suspension -) 30 ml PO Q6HPO PRN PRN Reason: INDIGESTION Amlodipine Besylate (Norvasc -) 5 mg PO DAILY [facility] Last Admin: 04/19/17 09:14 Dose: 5 mg Dipyridamole/Aspirin (Aggrenox -) 1 combo PO BID [facility] Last Admin: 04/19/17 09:14 Dose: 1 combo Ranitidine HCl (Zantac -) 150 mg PO BID [facility] Last Admin: 04/19/17 09:14 Dose: 150 mg Terazosin HCl (Hytrin -) 2 mg PO HS [facility] Last Admin: 04/18/17 21:40 Dose: 2 mg Valsartan (Diovan -) 160 mg PO DAILY [facility] Last Admin: 04/19/17 09:14 Dose: 160 mg *Physical Exam Vital Signs Temperature 97.8 F 04/19/17 08:20 Pulse Rate 62 04/19/17 08:20 Respiratory Rate 20 04/19/17 08:20 Blood Pressure 143/98 04/19/17 08:20 O2 Sat by Pulse Oximetry (%) 98 04/18/17 21:00 GENERAL: Awake, alert, and fully oriented, in no acute distress HEAD: No signs of trauma EYES: PERRLA, EOMI, sclera anicteric, conjunctiva clear ENT: Auricles normal inspection, hearing grossly normal, nares patent, oropharynx clear without exudates. Moist mucosa NECK: Normal ROM, supple, no lymphadenopathy, JVD, or masses LUNGS: Breath sounds equal, clear to auscultation bilaterally. No wheezes, and no crackles HEART: Regular rate and rhythm, normal S1 and S2, no murmurs, rubs or gallops ABDOMEN: Soft, nontender, normoactive bowel sounds. No guarding, no rebound. No masses EXTREMITIES: Normal range of motion, no edema. No clubbing or cyanosis. No cords, erythema, or tenderness NEUROLOGICAL: Cranial nerves II through XII intact. 5/5 motor strength in all extremities. Normal speech. Dysmetria noted, antaligic gait SKIN: Warm, Dry, normal turgor, no rashes or lesions noted. CBCD WBC 8.3 K/mm3 (4.0-10.0) 04/18/17 05:10 RBC 3.79 M/mm3 (4.00-5.60) L 04/18/17 05:10 Hgb 12.2 GM/dL (11.7-16.9) 04/18/17 05:10 Hct 37.1 % (35.4-49) 04/18/17 05:10 MCV 97.9 fl (80-96) H 04/18/17 05:10 MCHC 33.0 g/dl (32.0-35.9) 04/18/17 05:10 RDW 13.2 % (11.9-15.9) 04/18/17 05:10 Plt Count 179 K/MM3 (134-434) 04/18/17 05:10 MPV 9.7 fl (7.5-11.1) 04/18/17 05:10 CMP Sodium 139 mmol/L (136-145) 04/18/17 05:10 Potassium 4.1 mmol/L (3.5-5.1) 04/18/17 05:10 Chloride 107 mmol/L (98-107) 04/18/17 05:10 Carbon Dioxide 26 mmol/L (21-32) 04/18/17 05:10 Anion Gap 6 (8-16) L 04/18/17 05:10 BUN 21 mg/dL (7-18) H D 04/18/17 05:10 Creatinine 1.2 mg/dL (0.7-1.3) 04/18/17 05:10 Creat Clearance w eGFR 58.11 (>60) 04/18/17 05:10 Calcium 8.6 mg/dL (8.5-10.1) 04/18/17 05:10 Total Bilirubin 1.0 mg/dL (0.2-1.0) 04/18/17 05:10 AST 37 U/L (15-37) 04/18/17 05:10 ALT 34 U/L (12-78) 04/18/17 05:10 Alkaline Phosphatase 380 U/L (45-117) H 04/18/17 05:10 Total Protein 5.8 g/dl (6.4-8.2) L 04/18/17 05:10 Albumin 2.6 g/dl (3.4-5.0) L 04/18/17 05:10 CT head CTA head MRI brain Carotid dopplers reviewed Medical Decision Making 82 year old male with a significant PMH of AFIB (not on blood thinners) & HTN who presented to the emergency department with dizziness and chest pain on 04/16. 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 Patient was not in TPA window but endovascular treatment was considered. Nolberto was contacted by the ER and recommendation for CTA was given. This was completed and reviewed and showed Posterior Inferior Cerebellar arterial occlusion, no blockage of basilar and therefore patient was not pursued for further endovascular treatment. Patient admitted for further CVA workup and MRI brain completed and reviewed and showed consistent L cerebellar acute to subacute infarct. The patient takes a daily ASA and therefore considered ASA failure, ordered Aggrenox twice daily. Carotd dopplers completed and showed no anterior circulation hemodynamically significant stenosis. Vascular surgery on the case and notes reviewed, no surgical intervention at this time. Unclear etiology, can be embolic and rec'd checking Echo Cerebellar CVA often times HTN, therefore tight BP control rec'd, maintain < 140 /90 Can continue Diovan, Norvasc Cerebellar CVA edema can build, monitor for increased intracranial pressure Fioricet started for headache, no other deficits or symptoms Physical therapy as tolerated, will need rehab LDL 42, within normal limits DVT ppx AC can be considered for Afib, patient now > 48 hrs since admission Defer to cards regarding medication for AC Physical therapy consider assistive device may benefit from rehab
--- NOTE | 2017-04-19 14:04 | DS ---
Physical Examination Vital Signs: Vital Signs Temperature 97.5 F L 04/19/17 11:58 Pulse Rate 54 L 04/19/17 11:58 Respiratory Rate 18 04/19/17 11:58 Blood Pressure 147/91 04/19/17 11:58 O2 Sat by Pulse Oximetry (%) 95 04/19/17 08:00 Findings/Remarks: feeling better, c/o constipation Constitutional: Yes: No Distress Eyes: Yes: WNL HENT: Yes: WNL Neck: Yes: WNL Cardiovascular: Yes: Pulse Irregular Respiratory: Yes: WNL Gastrointestinal: Yes: WNL Renal/: Yes: WNL Musculoskeletal: Yes: Muscle Weakness Extremities: Yes: WNL Edema: No Peripheral Pulses WNL: Yes Integumentary: Yes: WNL Wound/Incision: Yes: Clean/Dry Neurological: Yes: Weakness ...Motor Strength: LLE, RLE Psychiatric: Yes: WNL Labs: CBC, BMP 04/18/17 05:10 04/18/17 05:10 Discharge Summary Reason For Visit: CHEST PAIN Current Active Problems Bradycardia (Acute) CVA (cerebral vascular accident) (Acute) Chest pain (Acute) Hypertension (Acute) Nausea & vomiting (Acute) Vertigo (Acute) Procedures: Principal: mri brain Other Procedures: ct and cta brain Hospital Course: admitted acute cva, treated on telemetry with Afib and new CVA, started on eliquis and stopped aggrenox. patient cholesterol was normal and did not need statin therapy. will send to [facility] for post-stroke conditioning and rehab. Condition: Fair - Instructions Diet, Activity, Other Instructions: see Dr Gmaa 1 week after discharge from [facility] Low salt/low fat diet Referrals: Munira Gama MD [Primary Care Provider] - Disposition: LONG TERM FACILITY - Home Medications Comprehensive Discharge Medication List: Ambulatory Orders Amlodipine Bes/Olmesartan Med [Yariel 5-20 mg Tablet] 1 each PO DAILY 05/25/12 Terazosin HCl [Hytrin -] 2 mg PO DAILY 05/25/12
[2017-04-19] MEDS: LORATADINE 10 MG TABLET PO SCH (14:31)
--- NOTE | 2017-04-19 14:33 | PN ---
Progress Note, Physician Chief Complaint: No complaints Tele: afib 50s-70s No significant pauses History of Present Illness: 82 M with HTN who has a prior history of Afib (seen by Dr. Boudreaux and pt has repeatedly declined AC). He developed severe dizziness and nausea and had several dry heaves after which he had left sided chest pressure-point tenderness without radiation. Pain was reproducible and has now resolved. MRI showing an acute infarct. There is no prior history of CAD or heart failure. A stress test few years ago was reportedly negative per pt. - Current Medication List Current Medications: Active Medications Acetaminophen (Tylenol -) 650 mg PO Q6H PRN PRN Reason: FEVER OR PAIN Last Admin: 04/19/17 11:52 Dose: 650 mg Acetaminophen/Butalbital/Caffeine (Fioricet -) 1 tablet PO Q6H PRN PRN Reason: HEADACHE Last Admin: 04/19/17 14:29 Dose: 1 tablet Al Hydroxide/Mg Hydroxide (Mylanta Suspension -) 30 ml PO Q6HPO PRN PRN Reason: INDIGESTION Amlodipine Besylate (Norvasc -) 5 mg PO DAILY [facility] Last Admin: 04/19/17 09:14 Dose: 5 mg Apixaban (Eliquis -) 5 mg PO BID [facility] Fluticasone Propionate (Flonase -) 2 spray NS DAILY [facility] Loratadine (Claritin -) 10 mg PO DAILY [facility] Last Admin: 04/19/17 14:31 Dose: 10 mg Ranitidine HCl (Zantac -) 150 mg PO BID [facility] Last Admin: 04/19/17 09:14 Dose: 150 mg Terazosin HCl (Hytrin -) 2 mg PO HS [facility] Last Admin: 04/18/17 21:40 Dose: 2 mg Valsartan (Diovan -) 160 mg PO DAILY [facility] Last Admin: 04/19/17 09:14 Dose: 160 mg - Objective Vital Signs: Vital Signs Temperature 97.5 F L 04/19/17 11:58 Pulse Rate 54 L 04/19/17 11:58 Respiratory Rate 18 04/19/17 11:58 Blood Pressure 147/91 04/19/17 11:58 O2 Sat by Pulse Oximetry (%) 95 04/19/17 08:00 Constitutional: Yes: No Distress Neck: Yes: Supple, Trachea Midline Cardiovascular: Yes: Pulse Irregular, S1, S2. No: JVD Respiratory: Yes: CTA Bilaterally Gastrointestinal: Yes: Normal Bowel Sounds, Soft Edema: No Labs: CBC, BMP 04/18/17 05:10 04/18/17 05:10 Problem List - Problems (1) Hypertension Code(s): I10 - ESSENTIAL (PRIMARY) HYPERTENSION Qualifiers: Hypertension type: essential hypertension Qualified Code(s): I10 - Essential (primary) hypertension Assessment/Plan 82 M with HTN who has a prior history of Afib (seen by Dr. Boudreaux and pt has repeatedly declined AC). He developed severe dizziness and nausea and had several dry heaves after which he had left sided chest pressure-point tenderness without radiation. Pain was reproducible and has now resolved. MRI showing an acute infarct. There is no prior history of CAD or heart failure. A stress test few years ago was reportedly negative per pt. 1) CVA -HTN control. Would continue current regimen -F/u neuro recs Echocardiogram with no embolic source Known Afib. halfway should be on AC. Started on apixaban 5mg po bid. 2) HTN continue current regimen but consider increasing amlodipine to 7.5mg daily 3) Afib Known h/o afib Paroxysmal afib on tele. Would monitor for any tachy/pina If has symptoms of dizziness in future consider monitor to re-evaluate for tachy /pina
[2017-04-19] MEDS: FLUTICASONE PROP 0.05% 16 GM NASAL SPRAY NS SCH (16:13)
[2017-04-19] MEDS ORDERED: PT OWN MED DRAWER 7, Y5N ONE ×2 (16:20→21:05)
--- NOTE | 2017-04-19 18:13 | EKG ---
Test Reason : Blood Pressure : / mmHG Vent. Rate : 061 BPM Atrial Rate : 182 BPM P-R Int : 150 ms QRS Dur : 096 ms QT Int : 444 ms P-R-T Axes : -50 -05 -45 degrees QTc Int : 446 ms UNUSUAL P AXIS, POSSIBLE ECTOPIC ATRIAL TACHYCARDIA WITH 2ND DEGREE A-V BLOCK WITH 3:1 A-V CONDUCTION NONSPECIFIC ST AND T WAVE ABNORMALITY ABNORMAL ECG WHEN COMPARED WITH ECG OF 17-APR-2017 13:21, ECTOPIC ATRIAL RHYTHM HAS REPLACED SINUS RHYTHM REPEAT EKG IF CLINICALLY INDICATED Confirmed by CARMEN ARROYO MD ([id number] on 04/19/2017 6:13:12 PM Referred By: Confirmed By:CARMEN ARROYO MD
[2017-04-19] MEDS ORDERED: ONDANSETRON *ODT* 4 MG TABLET SL PRN (19:11)
[2017-04-19] MEDS ORDERED: METOCLOPRAMIDE HCL INJECTION 10 MG/2 ML VIAL IVPUSH ONE (19:11)
[2017-04-19] MEDS ORDERED: PANTOPRAZOLE SODIUM 40 MG VIAL IVPUSH ONE (19:19)
[2017-04-19 20:30] LABS: MCH 32.6 pg (25.7-33.7); MCHC 33.5 g/dl (32.0-35.9); MEAN CELL VOLUME 97.2 fl (80-96); MEAN PLT VOLUME 9.8 fl (7.5-11.1); PLATELET COUNT 186 K/MM3 (134-434); RDW 13.5 % (11.9-15.9); WHITE BLOOD COUNT 11.7 K/mm3 (4.0-10.0)
[2017-04-19 20:42] LABS: ALBUMIN 2.9 g/dl (3.4-5.0); ANION GAP 8 (8-16); BILIRUBIN,TOTAL 1.2 mg/dL (0.2-1.0); CALCIUM 8.8 mg/dL (8.5-10.1); CO2 27 mmol/L (21-32); CREATININE 1.1 mg/dL (0.7-1.3); GLUCOSE,RANDOM 143 mg/dL (74-106); SGOT/AST 36 U/L (15-37); SGPT/ALT 37 U/L (12-78); TOT PROT 6.4 g/dl (6.4-8.2)
[2017-04-19 20:43] LABS: ALK PHOS 428 U/L (45-117)
[2017-04-19] MEDS: TERAZOSIN HCL 1 MG CAPSULE PO SCH (21:07)
[2017-04-19] MEDS: APIXABAN 5 MG TABLET PO SCH (21:07)
[2017-04-20] MEDS ORDERED: ONDANSETRON 4 MG TABLET PO PRN (04:39)
[2017-04-20] MEDS ORDERED: MAG HYDROX/AL HYDROX/SIMETH 30 ML UNIT-DOSE CUP PO PRN (04:39)
[2017-04-20] MEDS: ACETAMINOPHEN/CAFFEINE/BUTALBITAL 1 TAB PO PRN (07:58)
[2017-04-20 08:18] VITALS: BP 124/76; PULSE 50; TEMP 98.3
[2017-04-20] MEDS: amLODIPine BESYLATE 5 MG TABLET (FP) PO SCH (09:03)
[2017-04-20] MEDS: APIXABAN 5 MG TABLET PO SCH (09:03)
[2017-04-20] MEDS: FLUTICASONE PROP 0.05% 16 GM NASAL SPRAY NS SCH (09:03)
[2017-04-20] MEDS: RANITIDINE HCL 150 MG TABLET (FP) PO SCH (09:03)
[2017-04-20] MEDS: VALSARTAN 160 MG TABLET (UD) PO SCH (09:03)
[2017-04-20] MEDS: LORATADINE 10 MG TABLET PO SCH (09:03)
--- NOTE | 2017-04-20 09:43 | PN ---
Progress Note (short form) - Note Progress Note: Neurology History of Present Illness The patient is an 82 year old male with a significant PMH of AFIB (not on blood thinners) & HTN who presented to the emergency department with dizziness and chest pain on 04/16/18. The patient described the chest pain as a pressure-like sensation localized in the left upper chest with no radiation, 5/10 in severity. He noted associated mild shortness of breath with his chest pain. The patient reported working in his basement and feeling dizzy while reaching into his toolbox. He noted grabbing onto furniture to prevent himself from falling and injuring his head. He presented to ER and I was contacted spoke with ER physician. 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 Patient was not in TPA window but endovascular treatment was considered. Nolberto was contacted by the ER and recommendation for CTA was given. This was completed and reviewed and showed Posterior Inferior Cerebellar arterial occlusion, no blockage of basilar and therefore patient was not pursued for further endovascular treatment. Patient admitted for further CVA workup and MRI brain completed and reviewed and showed consistent L cerebellar acute to subacute infarct. The patient takes a daily ASA and therefore considered ASA failure, ordered Aggrenox twice daily. Carotd dopplers completed and showed no anterior circulation hemodynamically significant stenosis. Vascular surgery on the case and notes reviewed, no surgical intervention at this time. Patient reports feeling better this AM, plan is for SNF placement. Headaches improved, Fioricet was helpful. Patient started on Eliquis. I would like to repeat CT head prior to discharge to evaluate cerebellar edema and confirm no bleed now that AC has been started. Will order Active Medications Acetaminophen (Tylenol -) 650 mg PO Q6H PRN PRN Reason: FEVER OR PAIN Last Admin: 04/19/17 17:03 Dose: 650 mg Acetaminophen/Butalbital/Caffeine (Fioricet -) 1 tablet PO Q6H PRN PRN Reason: HEADACHE Last Admin: 04/20/17 07:58 Dose: 1 tablet Al Hydroxide/Mg Hydroxide (Mylanta Oral Suspension -) 30 ml PO Q6HPO PRN PRN Reason: INDIGESTION Last Admin: 04/20/17 09:03 Dose: 30 ml Amlodipine Besylate (Norvasc -) 5 mg PO DAILY [facility] Last Admin: 04/20/17 09:03 Dose: 5 mg Apixaban (Eliquis -) 5 mg PO BID [facility] Last Admin: 04/20/17 09:03 Dose: 5 mg Fluticasone Propionate (Flonase -) 2 spray NS DAILY [facility] Last Admin: 04/20/17 09:03 Dose: 2 sprays Loratadine (Claritin -) 10 mg PO DAILY [facility] Last Admin: 04/20/17 09:03 Dose: 10 mg Ondansetron HCl (Zofran -) 4 mg PO Q6H PRN PRN Reason: NAUSEA AND/OR VOMITING Ranitidine HCl (Zantac -) 150 mg PO BID [facility] Last Admin: 04/20/17 09:03 Dose: 150 mg Terazosin HCl (Hytrin -) 2 mg PO HS [facility] Last Admin: 04/19/17 21:07 Dose: 2 mg Valsartan (Diovan -) 160 mg PO DAILY [facility] Last Admin: 04/20/17 09:03 Dose: 160 mg *Physical Exam Vital Signs Temperature 98.3 F 04/20/17 08:16 Pulse Rate 50 L 04/20/17 08:16 Respiratory Rate 16 04/20/17 08:16 Blood Pressure 124/76 04/20/17 08:16 O2 Sat by Pulse Oximetry (%) 97 04/19/17 21:00 GENERAL: Awake, alert, and fully oriented, in no acute distress HEAD: No signs of trauma EYES: PERRLA, EOMI, sclera anicteric, conjunctiva clear ENT: Auricles normal inspection, hearing grossly normal, nares patent, oropharynx clear without exudates. Moist mucosa NECK: Normal ROM, supple, no lymphadenopathy, JVD, or masses LUNGS: Breath sounds equal, clear to auscultation bilaterally. No wheezes, and no crackles HEART: Regular rate and rhythm, normal S1 and S2, no murmurs, rubs or gallops ABDOMEN: Soft, nontender, normoactive bowel sounds. No guarding, no rebound. No masses EXTREMITIES: Normal range of motion, no edema. No clubbing or cyanosis. No cords, erythema, or tenderness NEUROLOGICAL: Cranial nerves II through XII intact. 5/5 motor strength in all extremities. Normal speech. Dysmetria noted, antaligic gait SKIN: Warm, Dry, normal turgor, no rashes or lesions noted. CBCD WBC 11.7 K/mm3 (4.0-10.0) H D 04/19/17 19:45 RBC 4.08 M/mm3 (4.00-5.60) 04/19/17 19:45 Hgb 13.3 GM/dL (11.7-16.9) 04/19/17 19:45 Hct 39.6 % (35.4-49) 04/19/17 19:45 MCV 97.2 fl (80-96) H 04/19/17 19:45 MCHC 33.5 g/dl (32.0-35.9) 04/19/17 19:45 RDW 13.5 % (11.9-15.9) 04/19/17 19:45 Plt Count 186 K/MM3 (134-434) 04/19/17 19:45 MPV 9.8 fl (7.5-11.1) 04/19/17 19:45 CMP Sodium 135 mmol/L (136-145) L 04/19/17 19:45 Potassium 3.7 mmol/L (3.5-5.1) 04/19/17 19:45 Chloride 100 mmol/L (98-107) 04/19/17 19:45 Carbon Dioxide 27 mmol/L (21-32) 04/19/17 19:45 Anion Gap 8 (8-16) 04/19/17 19:45 BUN 15 mg/dL (7-18) D 04/19/17 19:45 Creatinine 1.1 mg/dL (0.7-1.3) 04/19/17 19:45 Creat Clearance w eGFR > 60 (>60) 04/19/17 19:45 Calcium 8.8 mg/dL (8.5-10.1) 04/19/17 19:45 Total Bilirubin 1.2 mg/dL (0.2-1.0) H 04/19/17 19:45 AST 36 U/L (15-37) 04/19/17 19:45 ALT 37 U/L (12-78) 04/19/17 19:45 Alkaline Phosphatase 428 U/L (45-117) H 04/19/17 19:45 Total Protein 6.4 g/dl (6.4-8.2) 04/19/17 19:45 Albumin 2.9 g/dl (3.4-5.0) L 04/19/17 19:45 CT head CTA head MRI brain Carotid dopplers reviewed Medical Decision Making 82 year old male with a significant PMH of AFIB (not on blood thinners) & HTN who presented to the emergency department with dizziness and chest pain on 04/16. 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 Patient was not in TPA window but endovascular treatment was considered. Nolberto was contacted by the ER and recommendation for CTA was given. This was completed and reviewed and showed Posterior Inferior Cerebellar arterial occlusion, no blockage of basilar and therefore patient was not pursued for further endovascular treatment. Patient admitted for further CVA workup and MRI brain completed and reviewed and showed consistent L cerebellar acute to subacute infarct. The patient takes a daily ASA and therefore considered ASA failure, ordered Aggrenox twice daily. Carotd dopplers completed and showed no anterior circulation hemodynamically significant stenosis. Vascular surgery on the case and notes reviewed, no surgical intervention at this time. Unclear etiology, can be embolic and rec'd checking Echo Cerebellar CVA often times HTN, therefore tight BP control rec'd, maintain < 140 /90 Can continue Diovan, Norvasc Cerebellar CVA edema can build, CT head to be repeated this AM prior to possible d/c also since AC started Fioricet started for headache, much improved Physical therapy as tolerated, planned for SNF LDL 42, within normal limits DVT ppx
[2017-04-20] MEDS: ACETAMINOPHEN 325 MG TABLET (FP) PO PRN (12:11)
== END 2017-04-20 12:59 | DRG 64 ==
LOC: JER 18:52 → JERBED 23:39 → J4W 04-17 01:52
PROVIDERS: ADMIT Internal Medicine; ATTEND Family Medicine
DX: I63.9 Cerebral infarction, unspecified (principal); G93.6 Cerebral edema; I10 Essential (primary) hypertension; I48.0 Paroxysmal atrial fibrillation; R07.9 Chest pain, unspecified; R00.1 Bradycardia, unspecified; R42 Dizziness and giddiness; R11.2 Nausea with vomiting, unspecified
CPT/HCPCS: 36415; 70450-TC; 70496-TC; 70551-TC; 71020-TC; 74020-TC; 80053; 80061; 82550; 83036; 83690; 83721; 84439; 84484; 85025; 85027; 93005; 93010; 93306-TC; 93880-TC; 97116-GP; 97161-GP; 99284-25